=== PATIENT | male | born 1980 | race Caucasian/White ===

== ENCOUNTER 2019-10-30 18:03 | Inpatient (IN) | payer OTHER ==
[~2019-10-30] VITALS: Ht 172.7 cm; Wt 83.5 kg
[2019-10-30] VITALS (22 sets, daily range): BP systolic 146–153; BP diastolic 82–94; PULSE 104; TEMP 98.3; O2SAT 95–100
[2019-10-30] MEDS ORDERED: FARXIGA10 PO (18:12)
[2019-10-30] MEDS ORDERED: ZYRTEC10MGSGL PO (18:12)
[2019-10-30] MEDS ORDERED: EFFEXOR 75M75 MG/TAB PO (18:12)
[2019-10-30] MEDS ORDERED: PRINIVIL20 MG PO (18:13)
[2019-10-30] MEDS ORDERED: LEVEMIR100 U/ML SQ (18:13)
[2019-10-30] MEDS ORDERED: ZOCOR 40MG40 MG PO (18:13)
[2019-10-30] MEDS ORDERED: CELEXA40 MG PO (18:13)
[2019-10-30 18:44] LABS: BASO # 0.1 (0.0-0.2); BASO % 0.7 % (0.0-2.0); EOS % 0.1 % (0-4.0); GRAN # 4.3 (1.4-6.5); GRAN % 62.6 % (42.2-75.2); HEMATOCRIT 42.6 % (42.0-52.0); HEMOGLOBIN 14.7 g/dl (13.5-18.0); LYMPH # 1.7 (1.2-3.4); LYMPH % 25.3 % (20.0-51.0); MEAN CELL VOLUME 94 fl (80.0-100.0); MEAN CORPUSCULAR HEMOGLOBIN 32 pg (27.0-31.0); MEAN CORPUSCULAR HGB CONC 35 g/dl (33.0-37.0); MEAN PLATELET VOLUME 10.1 fl (7.4-10.4); MONO # 0.8 (0.1-0.6); MONO % 11.2 % (1.7-9.3); PLATELET COUNT 169 K/mm3 (130-400); RED BLOOD COUNT 4.55 M/mm3 (4.20-5.60); REDCELL DISTRIBUTION WIDTH-CV 12.5 % (11.5-14.5)
[2019-10-30 18:54] LABS: ALANINE AMINOTRANSFERASE 77 U/L (4-49); ALBUMIN 4.8 gm/dL (3.5-5.0); ALCOHOL(ethanol),MEDICAL 16 mg/dL; ALKALINE PHOSPHATASE 91 U/L (50-136); ANION GAP 16 mmol/L (7-16); AST,SGOT 79 U/L (15-37); BILIRUBIN,TOTAL 0.8 mg/dL (0.0-1.0); BLOOD UREA NITROGEN 4 mg/dL (9-20); CALCIUM 8.2 mg/dL (8.4-10.2); CARBON DIOXIDE 20 mmol/L (22-30); CHLORIDE 100 mmol/L (98-107); CREATININE, serum 0.54 (0.66-1.25); GLUCOSE 110 mg/dL (74-106); LIPASE 250 U/L (23-300); MAGNESIUM 1.2 mg/dL (1.6-2.3); POTASSIUM 3.5 mmol/L (3.4-5.0); SODIUM 135 mmol/L (137-145); TOTAL PROTEIN 7.3 gm/dL (6.4-8.2)
[2019-10-30 19:06] LABS: TROPONIN-I < 0.012 ng/mL (0.000-0.035)
[2019-10-30 19:43] LABS: INR 0.9 (0.8-3.0); PROTHROMBIN TIME 10.9 SECONDS (9.7-12.8)
[2019-10-30 19:45] LABS: PHOSPHOROUS 2.4 mg/dL (2.5-4.5)
[2019-10-30 19:55] LABS: ACETAMINOPHEN < 10 ug/mL (10-30); SALICYLATE < 1.0 mg/dL
[2019-10-30 20:31] LABS: COLLECTION METHOD CLEAN CATCH
[2019-10-30 20:36] LABS: MUCOUS Present /lpf; PH 6 (5-8); SQUAMOUS EPITHELIAL None Seen /hpf; URINE APPEARANCE Clear; URINE BACTERIA None Seen /hpf; URINE BILIRUBIN Negative (NEGATIVE); URINE BLOOD Negative (NEGATIVE); URINE COLOR Yellow; URINE GLUCOSE Negative (NEGATIVE); URINE KETONE 2+ (NEGATIVE); URINE LEUKOCYTE ESTERASE Negative (NEGATIVE); URINE NITRATE Negative (NEGATIVE); URINE PROTEIN(semi-quant) Negative (NEGATIVE); URINE RBC 0-2 /hpf; URINE UROBILINOGEN Negative (NEGATIVE); URINE WBC 0-2 /hpf
[2019-10-30] MEDS ORDERED: EFFEXOR XR75 MG/CAP PO (20:48)
[2019-10-30 20:51] LABS: TRICYCLIC ANTIDEPRESS URINE NEGATIVE
[2019-10-31] VITALS (427 sets, daily range): BP systolic 136–168; BP diastolic 96–118; PULSE 84–111; TEMP 97.8–99.5; O2SAT 88–100
[2019-10-31 05:29] LABS: BASO # 0.1 (0.0-0.2); BASO % 0.7 % (0.0-2.0); EOS # 0.1 (0.0-0.7); GRAN # 4.5 (1.4-6.5); GRAN % 62.5 % (42.2-75.2); HEMATOCRIT 44.6 % (42.0-52.0); HEMOGLOBIN 14.8 g/dl (13.5-18.0); LYMPH # 1.7 (1.2-3.4); LYMPH % 23.5 % (20.0-51.0); MEAN CELL VOLUME 95 fl (80.0-100.0); MEAN CORPUSCULAR HEMOGLOBIN 32 pg (27.0-31.0); MEAN CORPUSCULAR HGB CONC 33 g/dl (33.0-37.0); MEAN PLATELET VOLUME 10.4 fl (7.4-10.4); MONO # 0.9 (0.1-0.6); MONO % 11.9 % (1.7-9.3); PLATELET COUNT 155 K/mm3 (130-400); RED BLOOD COUNT 4.69 M/mm3 (4.20-5.60); REDCELL DISTRIBUTION WIDTH-CV 12.5 % (11.5-14.5)
[2019-10-31 05:44] LABS: ALBUMIN 4.5 gm/dL (3.5-5.0); BILIRUBIN,TOTAL 1.3 mg/dL (0.0-1.0); CALCIUM 7.9 mg/dL (8.4-10.2); CREATININE, serum 0.5 (0.66-1.25); MAGNESIUM 1.9 mg/dL (1.6-2.3); PHOSPHOROUS 3.4 mg/dL (2.5-4.5); POTASSIUM 3.8 mmol/L (3.4-5.0); TOTAL PROTEIN 7.1 gm/dL (6.4-8.2)
[2019-10-31] MEDS ORDERED: FOLIC ACID 11 MG/TA1 PO (12:27)
[2019-10-31] MEDS ORDERED: THIAMINE 1100 MG/TAB PO (12:27)
[2019-10-31] MEDS ORDERED: DUO-KAPS1 CAP PO (12:27)
[2019-10-31] MEDS ORDERED: LIBRIUM 25M25 MG/CAP PO (12:39)
--- NOTE | 2019-10-31 13:22 | NUR ---
MENDOZA attended clinical rounds. The patient denies suicidal and homicidal ideation. The patient reports that his brother, Augustin, has set up an outpatient mental health appointment for him on Sunday. The patient is to discharge today, 10/30. MENDOZA then followed up with the patient to discuss discharge plan. The patient lives in [place], [place] with his father, Ghanshyam (ph#[phone]). He reports independence with ADLs and does not have any DME. The patient's PCP is Dr. Francisco Horan in [place] and he receives his medications at [facility]. He plans to utilize the [facility] in [place] while he is here. He reports no difficulties obtaining his meds. The patient does not have advanced directives. He states that his parents are his next of kin. His mother is Jayashree Hughes (ph#[phone]). The patient plans to stay with his brother, Augustin (ph#[phone]), in [place] upon discharge. The patient was unsure on where his brother got him set at for the outpatient appointment. MENDOZA then contacted the patient's brother, Augustin, to follow up about the outpatient appointment. Augustin reports that he has not yet set up an appointment. He states that he is hopeful to get the patient an outpatient psych appointment somewhere as soon as possible. MENDOZA contacted [facility]. The soonest they would be able to make an appointment for him, would be December. MENDOZA contacted Frank[facility] at [facility]. Franko reports that the quickest way to get him an appointment would be to stop by the [facility] for an intake or a private psychiatrist, Michele Wilson. Franko reports that the patient could stop by the [facility] today. MENDOZA contacted and informed the patient's brother of the options. The patient's brother reports that he would prefer to bring the patient to the [facility] today, after he discharges. MENDOZA also provided him with James Butler's phone number. MENDOZA updated the patient and the patient then spoke to his brother over the phone about the options. The patient and his brother plan to discuss these options some more, when his brother comes to pick him up. MENDOZA updated the patient's RN on the above information. No additional needs at this time.
--- NOTE | 2019-10-31 14:30 | NUR ---
Discharge instructions given to patient, voices understanding. Discharge ambulatory to POV with brother driving
== END 2019-10-31 14:30 | disposition home or self-care (01) | DRG 897 ==
LOC: COL.ER 18:03 → IMCU 19:01 → COL.ER 19:01 → IMCU 10-31 14:30
PROVIDERS: Nurse Practitioner; Nurse Practitioner Family; ADMIT Hospitalist
DX: F10.239 Alcohol dependence with withdrawal, unspecified (principal); R45.851 Suicidal ideations; Y90.8 Blood alcohol level of 240 mg/100 ml or more; E87.6 Hypokalemia; E83.42 Hypomagnesemia; E83.39 Other disorders of phosphorus metabolism; E11.9 Type 2 diabetes mellitus without complications; I10 Essential (primary) hypertension; E78.5 Hyperlipidemia, unspecified; F41.9 Anxiety disorder, unspecified; F32.9 Major depressive disorder, single episode, unspecified; E66.9 Obesity, unspecified; Z68.27 Body mass index [BMI] 27.0-27.9, adult
CPT/HCPCS: OP; 99223-AI; 99239; J2060; J3411; J3475; J7030; J7040

== ENCOUNTER 2021-11-30 19:19 | Emergency (ER) | payer OTHER ==
[~2021-11-30] VITALS: Ht 167.6 cm; Wt 81.8 kg
[~2021-11-30 19:19] MED LIST: CELEXA40 MG PO; DUO-KAPS1 CAP PO; EFFEXOR 75M75 MG/TAB PO; EFFEXOR XR75 MG/CAP PO; FARXIGA10 PO; FOLIC ACID 11 MG/TA1 PO; LEVEMIR100 U/ML SQ; LIBRIUM 25M25 MG/CAP PO; PRINIVIL20 MG PO; THIAMINE 1100 MG/TAB PO; ZOCOR 40MG40 MG PO; ZYRTEC10MGSGL PO
[2021-11-30 19:34] VITALS: TEMP 99.1
[2021-11-30 20:34] LABS: BASO # 0.1 K/mm3 (0.0-0.2); BASO % 1.3 % (0.0-2.0); EOS % 0.6 % (0.0-4.0); GRAN # 1.4 K/mm3 (1.4-6.5); GRAN % 28.6 % (42.2-75.2); HEMATOCRIT 46.1 % (42.0-52.0); HEMOGLOBIN 15.7 g/dl (13.5-18.0); LYMPH # 2.8 K/mm3 (1.2-3.4); LYMPH % 58.5 % (20.0-51.0); MEAN CELL VOLUME 92 fl (80.0-100.0); MEAN CORPUSCULAR HEMOGLOBIN 32 pg (27-31); MEAN CORPUSCULAR HGB CONC 34 g/dl (33.0-37.0); MEAN PLATELET VOLUME 9.8 fl (7.4-10.4); MONO # 0.5 K/mm3 (0.1-0.6); MONO % 10.8 % (1.7-9.3); PLATELET COUNT 283 K/mm3 (130-400); RED BLOOD COUNT 4.99 M/mm3 (4.20-5.60); REDCELL DISTRIBUTION WIDTH-CV 14.9 % (11.5-14.5)
[2021-11-30 20:51] LABS: COLLECTION METHOD CLEAN CATCH
[2021-11-30 20:56] LABS: ALBUMIN 4.6 gm/dL (3.5-5.0); BILIRUBIN,TOTAL 0.5 mg/dL (0.2-1.2); CALCIUM 8.5 mg/dL (8.4-10.2); CREATININE, serum 0.8 mg/dL (0.72-1.25); POTASSIUM 3.9 mmol/L (3.5-4.5); TOTAL PROTEIN 7.6 gm/dL (6.2-8.1)
[2021-11-30 20:59] LABS: MUCOUS Present (NOT PRESENT); PH 6 (5-8); SQUAMOUS EPITHELIAL 0-2 /hpf (0-10); URINE APPEARANCE Clear (CLEAR/HAZY); URINE BACTERIA None Seen /hpf (NONE SEEN); URINE BILIRUBIN Negative (NEGATIVE); URINE BLOOD Negative (NEGATIVE); URINE COLOR Yellow (YELLOW); URINE GLUCOSE 3+ (NEGATIVE); URINE KETONE 2+ (NEGATIVE); URINE LEUKOCYTE ESTERASE Negative (NEGATIVE); URINE NITRATE Negative (NEGATIVE); URINE PROTEIN(semi-quant) 2+ (NEGATIVE); URINE RBC None Seen /hpf (0-2); URINE UROBILINOGEN Negative (NEGATIVE)
[2021-11-30 21:08] LABS: TRICYCLIC ANTIDEPRESS URINE NEGATIVE
[2021-11-30] MEDS ORDERED: AMOXICILLIN 50500 MG PO (22:24)
[2021-11-30 22:40] VITALS: BP 144/78; PULSE 76
== END 2021-11-30 22:40 | disposition home or self-care (01) ==
LOC: COL.ER 19:19
PROVIDERS: Nurse Practitioner Family
DX: K04.7 Periapical abscess without sinus (principal); F10.129 Alcohol abuse with intoxication, unspecified; Z28.310 Unvaccinated for COVID-19
CPT/HCPCS: J7030